=== PATIENT | female | born 1955 | race Caucasian/White ===

== ENCOUNTER 2020-04-04 13:50 | Outpatient (CLI) | payer OTHER, SELFPAY ==
--- NOTE | ~2020-04-04 | MM_ITS ---
EXAMINATION: MM screening [facility] w mazin HISTORY: Screening mammogram TECHNIQUE: Craniocaudal and mediolateral oblique 3-D tomosynthesis images were obtained and synthetic 2-D images were generated. CAD analysis was submitted and interpreted. COMPARISON: 03/30/2019, 03/05/2018, 11/28/2016 bilateral digital screening mammogram examinations BREAST PARENCHYMAL COMPOSITION: The breasts are extremely dense, which lowers the sensitivity of mamm ography. FINDINGS: There is no evidence of suspicious mass, calcification, or architectural distortion to sugg est malignancy in either breast. There has been no suspicious interval change. IMPRESSION: 1. No mammographic evidence of malignancy. 2. Recommend routine screening mammography in one year. BI-RADS Category 1: Negative Reviewed, dictated and finalized at location A.
== END 2020-04-04 13:51 | disposition home or self-care (01) ==
PROVIDERS: PCP Internal Medicine; Visit Provider Obstetrics & Gynecology
DX: Z12.31 Encounter for screening mammogram for malignant neoplasm of breast (principal)
CPT/HCPCS: 77063; 77067

== ENCOUNTER 2020-05-18 12:48 | Outpatient (CLI) | payer OTHER, SELFPAY ==
--- NOTE | 2020-05-18 15:00 | NEURO_ITS ---
Patient Number: [id number] Impression: # Complains of numbness of hand. # Evolving right Carpal Tunnel Syndrome. # No ulnar neuropathy. # Normal needle/EMG exam. Nerve Conduction Studies Anti Sensory Summary Table Stim Site NR Peak (ms) P-T Amp (?V) Site1 Site2 Delta-P (ms) Dist (cm) Eric (m/s) Left Median Anti Sensory (2-3nd Digit) Wrist 2.5 96.4 Wrist 2-3nd Digit 2.5 14.0 56 Wrist 2.7 79.1 Wrist 2-3nd Digit 2.5 14.0 56 Right Median Anti Sensory (2-3nd Digit) Wrist 2.7 73.4 Wrist 2-3nd Digit 2.7 14.0 52 Wrist 2.8 66.8 Wrist 2-3nd Digit 2.7 14.0 52 Left Radial Anti Sensory (Base 1st Digit) Wrist 2.2 49.3 Wrist Base 1st Digit 2.2 0.0 Right Radial Anti Sensory (Base 1st Digit) Wrist 2.3 12.4 Wrist Base 1st Digit 2.3 0.0 Left Ulnar Anti Sensory (5th Digit) Wrist 2.6 75.2 Wrist 5th Digit 2.6 14.0 54 Right Ulnar Anti Sensory (5th Digit) Wrist 2.5 71.7 Wrist 5th Digit 2.5 14.0 56 Motor Summary Table Stim Site NR Onset (ms) O-P Amp (mV) Site1 Site2 Delta-0 (ms) Dist (cm) Eric (m/s) Left Median Motor (Abd Poll Brev) Wrist 3.2 2.7 Elbow Wrist 5.1 28.0 55 Elbow 8.3 5.9 Right Median Motor (Abd Poll Brev) Wrist 3.4 2.6 Elbow Wrist 4.8 29.0 60 Elbow 8.2 3.5 Left Ulnar Motor (Abd Dig Minimi) Wrist 2.6 5.4 A Elbow Wrist 4.8 29.0 60 A Elbow 7.4 4.9 Right Ulnar Motor (Abd Dig Minimi) Wrist 2.3 5.9 A Elbow Wrist 4.4 28.0 64 A Elbow 6.7 4.7 F Wave Studies NR F-Lat (ms) L-R F-Lat (ms) Left Median (Mrkrs) (Abd Poll Brev) 29.18 0.93 Right Median (Mrkrs) (Abd Poll Brev) 28.25 0.93 Left Ulnar (Mrkrs) (Abd Dig Min) 26.91 0.50 Right Ulnar (Mrkrs) (Abd Dig Min) 27.41 0.50 EMG Side Muscle Nerve Root Ins Act Fibs Amp Dur Recrt Comment Right 1stDorInt Ulnar C8-T1 Nml Nml Nml Nml Nml Right Ext Indicis Radial (Post Int) C7-8 Nml Nml Nml Nml Nml Right Ext Digitorum Radial (Post Int) C7-8 Nml Nml Nml Nml Nml Right BrachioRad Radial C5-6 Nml Nml Nml Nml Nml Right PronatorTeres Median C6-7 Nml Nml Nml Nml Nml Right Abd Poll Brev Median C8-T1 Nml Nml Nml Nml Nml Left 1stDorInt Ulnar C8-T1 Nml Nml Nml Nml Nml Left Ext Indicis Radial (Post Int) C7-8 Nml Nml Nml Nml Nml Left Ext Digitorum Radial (Post Int) C7-8 Nml Nml Nml Nml Nml Left BrachioRad Radial C5-6 Nml Nml Nml Nml Nml Left PronatorTeres Median C6-7 Nml Nml Nml Nml Nml Left Abd Poll Brev Median C8-T1 Nml Nml Nml Nml Nml MTDD
== END 2020-05-18 12:49 | disposition home or self-care (01) ==
PROVIDERS: PCP Internal Medicine; Visit Provider Psychiatry & Neurology Neurology
DX: G56.01 Carpal tunnel syndrome, right upper limb (principal)
CPT/HCPCS: 95886; 95911

== ENCOUNTER 2020-06-01 16:22 | Outpatient (CLI) | payer OTHER, SELFPAY ==
[2020-06-01 16:37] LABS: Hematocrit 38.1 % (35.0-49.0); Hemoglobin 12.2 g/dL (12.0-15.0); Mean Corpuscular Hemoglobin 30.8 pg (27.0-31.0); Mean Corpuscular Volume 96.2 fL (78.0-102.0); Mean Platelet Volume 10.9 fl (9.2-11.8); Platelet Count Result 191 K/mm3 (150-420); Red Blood Count 3.96 M/mm3 (4.20-5.40); Red Cell Distribution Width 13.4 % (11.6-14.4); White Blood Count 5.7 K/mm3 (4.8-10.8)
[2020-06-01 17:25] LABS: Alanine Aminotransferase 33 U/L (14-59); Albumin Level 3.9 g/dL (3.4-5.0); Alkaline Phosphatase 81 U/L (46-116); Anion Gap 7 mmol/L (8-16); Aspartate Amino Transferase 26 U/L (15-37); Bilirubin,Total 0.2 mg/dL (0.00-1.00); Blood Urea Nitrogen 21 mg/dL (7-18); Calcium 8.8 mg/dL (8.5-10.1); Carbon Dioxide 30 mmol/L (21-32); Chloride 107 mmol/L (98-108); Cholesterol 182 mg/dL (0-200); Estimated Glomerular Filt Rate 47; Glucose 92 mg/dL (70-99); HDL Direct 97 mg/dL (40-60); LDL Cholesterol Calculated 74 mg/dL (<130); Osmolality Calculated 301 mOsm/kg (285-295); Potassium 3.6 mmol/L (3.5-5.1); Sodium 144 mmol/L (136-145); Total Protein 6.7 g/dL (6.4-8.2); Triglycerides 53 mg/dL (0-150)
[2020-06-06 12:04] LABS: Vitamin D 25 Hydroxy 79 ng/mL (30-100)
== END 2020-06-01 16:23 | disposition home or self-care (01) ==
LOC: CHSLAB 16:26
PROVIDERS: PCP Internal Medicine; Visit Provider Nurse Practitioner
DX: M81.0 Age-related osteoporosis without current pathological fracture (principal); Z13.220 Encounter for screening for lipoid disorders; I10 Essential (primary) hypertension
CPT/HCPCS: 36415; 80053; 80061; 82306; 85027

== ENCOUNTER 2020-07-07 09:15 | Outpatient (CLI) | payer OTHER, SELFPAY ==
--- NOTE | ~2020-07-07 | DEXA_ITS ---
Bone Density Report Name: Jaja Stroud Age: 64 Sex: Female Ethnicity: White Date of : 1955 Indication: postmenopausal; screening for osteoporosis; height loss; hysterectomy; Referring Provider: Gale Theodore Study: Bone densitometry was performed. Exam Date: July 07, 2020 Accession number: [id number] Bone Density: Region BMD T-score Z-score Classification AP Spine(L1-L4) 0.890 -1.4 0.2 Osteopenia Femoral Neck (Left) 0.687 -1.5 -0.1 Osteopenia Total Hip (Left) 0.784 -1.3 -0.2 Osteopenia Femoral Neck (Right) 0.667 -1.6 -0.2 Osteopenia Total Hip (Right) 0.785 -1.3 -0.2 Osteopenia Femoral Neck Mean 0.677 -1.6 -0.1 Osteopenia Total Hip Mean 0.785 -1.3 -0.2 Osteopenia World Health Organization criteria for BMD impression classify patients as: Normal (T-score at or above -1.0), Osteopenia (T-score between -1.0 and -2.5), or Osteoporosis (T-score at or below -2.5). 10-year Fracture Risk(1): Major Osteoporotic Fracture 7.3% Hip Fracture 0.8% Reported Risk Factors: [place] (), Neck BMD=0.667, BMI=17.5 (1) FRAX(R) Version 3.08. Fracture probability calculated for an untreated patient. Fracture probability may be lower if the patient has received treatment. Clinical Information Provided by Patient: Has used the following medications: Vitamin D, Calcium Has the following medical conditions: Hysterectomy Patient maximum height was 65 Menopause Age: 57 No regular weight bearing exercise Onset of menses at age 15 Number of children 2 Impression: The patient has low bone mass, based on the Right Femoral Neck T-score. Discussion: BONE DENSITY IS LOW AT ONE OR MORE SKELETAL SITES. This patient's lowest T-score is low at one or more skeletal sites. It meets the World Health Organization's (WHO) criteria for ?low bone mass? (T-score between -1.0 and -2.5). The patient's 10-year risk of fracture as calculated by FRAX is less than the threshold where pharmacological therapy is recommended by the National Osteoporosis Foundation (NOF). However, all treatment decisions require clinical judgment and consideration of individual patient factors, including patient preferences, comorbidities, previous drug use, risk factors not captured in the FRAX model (e.g., frailty, falls, vitamin D deficiency, increased bone turnover, interval significant decline in bone density) and possible under or overestimation of fracture risk by FRAX. The patient should follow a healthful lifestyle (good nutrition with adequate calcium and vitamin D, and appropriate weight-bearing exercise). Follow-Up: Consider repeating this study in 2 to 3 years to reassess this patient's status, or sooner if there is some new clinical indication. Reported by: Dr. Dakotah Meyers on 07/07/2020 9:47
== END 2020-07-07 09:16 | disposition home or self-care (01) ==
LOC: CHSIMG 09:16
PROVIDERS: PCP Internal Medicine; Visit Provider Nurse Practitioner
DX: M85.80 Other specified disorders of bone density and structure, unspecified site (principal)
CPT/HCPCS: 77080

== ENCOUNTER 2020-12-20 13:19 | Outpatient (CLI) | payer OTHER, SELFPAY ==
--- NOTE | 2020-12-20 13:53 | ECHO_ITS ---
Patient Info Name: Jaja Stroud Age: 65 years : 1955 Gender: Female Ht: 64 in Wt: 101 lbs BSA: 1.43 m2 HR: 88 bpm BP: 171 / 87 mmHg Technical Quality: Fair Exam Date: 12/20/2020 2:01 PM Exam Location: [facility] Patient Status: Outpatient Admit Date: 12/20/2020 Staff Ordering Physician: Jennifer Vargas Alarm Mechanic: Laura Plata RDCS Attending Provider: Jennifer Vargas Referring Physician: Sam MENDOZA; Exam Type: CA echo doppler color flow Study Info Indications - tachycardia Complete two-dimensional, color flow and Doppler transthoracic echocardiogram is performed. Summary 1. Complete two-dimensional, color flow and Doppler transthoracic echocardiogram is performed. 2. Left ventricular chamber dimension is normal. 3. Left ventricular systolic function is normal, estimated at 60-65%. 4. There is mildly increased left ventricular wall thickness. 5. The left ventricular diastolic function is grade I diastolic dysfunction. 6. E/e' 11 is mildly elevated. 7. There is trace mitral valve regurgitation. 8. There is mild tricuspid valve regurgitation. 9. No pulmonary hypertension, estimated pulmonary arterial systolic pressure is 23 mmHg. 10. Only in the subcostal images which is suboptimal there is a suggestion of a moderate to large loculated right sided pericardial effusion measuring up to 2.7 cm; however this could be artifact as it is not seen in other images. The other areas around the heart is small pericardial effusion. Consider CT of chest to assess pericardial effusion. Left Ventricle E/e' 11 is mildly elevated. Left ventricular chamber dimension is normal. Left ventricular systolic function is normal, estimated at 60-65%. There is mildly increased left ventricular wall thickness. The left ventricular diastolic function is grade I diastolic dysfunction. Right Ventricle Right ventricular chamber dimension is normal. Right ventricular systolic function is normal. Left Atria Left atrial chamber dimension is normal. Right Atria Right atrial chamber dimension is normal. Aortic Valve The aortic valve is trileaflet. There is no aortic valve stenosis. There is no aortic valve regurgitation. Pulmonic Valve There is no pulmonic regurgitation. Mitral Valve There is no mitral valve stenosis. There is trace mitral valve regurgitation. Tricuspid Valve There is mild tricuspid valve regurgitation. No pulmonary hypertension, estimated pulmonary arterial systolic pressure is 23 mmHg. Pericardium/Pleural Only in the subcostal images which is suboptimal there is a suggestion of a moderate to large loculated right sided pericardial effusion measuring up to 2.7 cm; however this could be artifact as it is not seen in other images. The other areas around the heart is small pericardial effusion. Consider CT of chest to assess pericardial effusion. Inferior Vena Cava Normal inferior vena cava with >50% collapse upon inspiration consistent with normal right atrial pressure, 5 mmHg. Aorta The aortic root size at the sinus of Valsalva is normal. Left Ventricular Outflow Tract Name Value Normal LVOT 2D LVOT Diameter 2.0 cm LVOT Doppler -----
== END 2020-12-20 13:20 | disposition home or self-care (01) ==
PROVIDERS: PCP Internal Medicine; Visit Provider Clinical Nurse Specialist
DX: I45.10 Unspecified right bundle-branch block (principal); R00.0 Tachycardia, unspecified; I36.1 Nonrheumatic tricuspid (valve) insufficiency
CPT/HCPCS: 93306

== ENCOUNTER 2021-01-17 10:22 | Outpatient (CLI) | payer OTHER, SELFPAY ==
--- NOTE | ~2021-01-17 | CT_ITS ---
EXAMINATION: CT diagnostic chest wo con DATE: 01/17/2021 10:44 INDICATION: Pericardial effusion TECHNIQUE: Computed tomography (CT) of the chest was performed without intravenous contrast. The dose -length product (DLP) was 136.18 mGy-cm. Automated exposure control and iterative reconstruction tech nique were employed. COMPARISON: None FINDINGS: The lungs are hyperinflated. A small pericardial effusion is noted. The heart size is rosa l. There is a 6 mm nodule of the right lower lobe on image 64. There is a 2 mm nodule of the left low er lobe on image 52. The lungs are free of focal airspace opacities. Pectus excavatum is noted. There is scarring of the lung apices. There are no pathologically enlarged thoracic lymph nodes. There is mild thoracic spondylosis. IMPRESSION: 1. Small pericardial effusion. 2. Lung nodules measuring up to 6 mm, likely old granulomatous disease. Recommend follow-up CT in 6-1 2 months. Reviewed, dictated and finalized at location B. IMPRESSION: 1. Small pericardial effusion. 2. Lung nodules measuring up to 6 mm, likely old granulomatous disease. Recomme nd follow-up CT in 6-12 months.
== END 2021-01-17 10:23 | disposition home or self-care (01) ==
LOC: ANHIMG 10:25
PROVIDERS: PCP Internal Medicine; Visit Provider Internal Medicine Cardiovascular Disease
DX: I31.3 Pericardial effusion (noninflammatory) (principal); R91.8 Other nonspecific abnormal finding of lung field
CPT/HCPCS: 71250

== ENCOUNTER 2021-04-05 12:59 | Outpatient (CLI) | payer OTHER, SELFPAY ==
--- NOTE | ~2021-04-05 | MM_ITS ---
EXAMINATION: MM screening [facility] BI w mazin HISTORY: Screening TECHNIQUE: Craniocaudal and mediolateral oblique 3-D tomosynthesis images were obtained and synthetic 2-D images were generated. CAD analysis was submitted and interpreted. COMPARISON: Comparison to multiple prior studies sequentially, with oldest reviewed study dated 10/11. BREAST PARENCHYMAL COMPOSITION: The breasts are extremely dense, which lowers the sensitivity of mamm ography. FINDINGS: There is no evidence of suspicious mass, calcification, or architectural distortion to sugg est malignancy in either breast. There has been no suspicious interval change. IMPRESSION: 1. No mammographic evidence of malignancy. 2. Recommend routine screening mammography in one year. BI-RADS Category 1: Negative Reviewed, dictated and finalized at location A.
== END 2021-04-05 13:00 | disposition home or self-care (01) ==
PROVIDERS: PCP Internal Medicine; Visit Provider Obstetrics & Gynecology
DX: Z12.31 Encounter for screening mammogram for malignant neoplasm of breast (principal)
CPT/HCPCS: 77063; 77067

== ENCOUNTER 2021-07-08 07:04 | Emergency (ER) | payer OTHER, SELFPAY ==
--- NOTE | 2021-07-08 08:00 | PCDIET ---
Pt seen in waiting room by THERESA Oneal. C/O of left ear pain and URI symptoms taken. Pt denies SOB. No acute distress noted. Pt A&O x4. Pt reports positive home covid test yesterday. Pt notified of wait time and asked to go out to car and wait to be seen. Pt verbalized understanding and walked out to car without distress. Pt is accompanied by spouse.
[2021-07-08 08:53] VITALS: BP 136/75; PULSE 108; RESP 16; TEMP 37.4; O2SAT 99
[2021-07-08 09:45] LABS: Influenza A QL RT-PCR Negative (Negative); Influenza B QL RT-PCR Negative (Negative); SARS-CoV-2 RNA PCR Positive (Negative)
[2021-07-08] MEDS: MAG HYDROX/ALUMINUM HYD/SIMETH 30 ML, PHENobarb/HYOSCY/ATROPINE/SCOP 32.4 MG, LIDOCAINE... PO (09:53)
[2021-07-08] MEDS: IBUPROFEN 400 MG TABLET 800 MG PO (09:55)
--- NOTE | 2021-07-08 10:01 | PC.NURSE ---
Pt refuses IV and fluids. Dr. Moore notified.
--- NOTE | 2021-07-08 10:12 | ED.URI ---
HPI - URI/Sore Throat General Chief Complaint: Upper Respiratory Infection Stated Complaint: sore throat/headache/positive covid 06/07 Time Seen by Provider: 07/08/21 07:08 Source: patient and RN notes reviewed Mode of arrival: ambulatory Limitations: no limitations History of Present Illness MD elicited complaint: fever, cough, sore throat and nasal congestion Onset (ago): day(s) (4) Consistency: progressively worsening Severity: mild Pain scale (0-10): 4 Able to tolerate fluids by mouth: Yes Exacerbating factors: nothing Relieving factors: nothing Associated symptoms: denies other symptoms and sore throat Treatments prior to arrival: none Related Data Home Medications Medication Instructions Recorded Confirmed multivitamin,[id number] 1 tablet PO DAILY 04/17/20 06/06/21 calcium carbonate 500 mg calcium 500 mg PO DAILY 06/22/20 06/06/21 (1,250 mg) tablet cholecalciferol (vitamin D3) 125 125 mcg PO DAILY 06/22/20 06/06/21 mcg (5,000 unit) capsule omega-3 fatty acids 1,000 mg 1,000 mg PO DAILY 06/22/20 06/06/21 capsule potassium 99 mg tablet 99 mg PO DAILY tablet 06/23/20 06/06/21 metoprolol tartrate 25 mg tablet 25 mg PO DAILY 05/01/21 06/06/21 Allergies Allergy/AdvReac Type Severity Reaction Status Date / Time aspirin Allergy Unknown Unknown Verified 06/06/21 12:09 Review of Systems Review of Systems: All systems reviewed & are unremarkable except as noted in HPI and below ENT: Reports nasal congestion and Reports sore throat PMFSH Past Medical History Medical History Chicken pox Closed fracture of nasal bone with routine healing Dermatophytosis of scalp and hendricks Essential (primary) hypertension Hypertension Malnutrition Measles Migraine headache Mumps Onychomycosis due to dermatophyte Osteopenia Surgical History Surgical History H/O foot surgery H/O: hysterectomy Family History Family History Mother Hypertension Patient's mother is Father Family history of elevated blood lipids Family history of diabetes mellitus in first degree relative Diabetes mellitus Hypertension Other Family history of coronary artery disease Family history of malignant neoplasm of breast Social History Social History Social History: caffeine-tea/soda occasionally Smoking status: Never smoker Second hand tobacco smoke exposure: No Alcohol intake: never Exam Const: General: no acute distress Orientation/consciousness: patient oriented x3 Limitations: no limitations HENMT: Head: normal to inspection Ears: external ears normal and TM's normal bilaterally General nose exam: Normal external nose present and Normal nares present Mouth: Yes lip normal and Yes moist mucous membranes Teeth and gingiva: dentition normal Other: mild hyperemic pharynx Eyes: Conjunctivae: conjunctivae normal Pupils: Equal, round and reactive pupils present EOM: EOMs intact bilaterally Neck: Neck: normal visual inspection and no lymphadenopathy Chest: Chest palpation & inspection: normal inspection of the chest Resp: Effort & Inspection: normal respiratory effort Auscultation: clear to auscultation bilaterally Cardio: Rate: regular rate Rhythm: regular rhythm GI: GI Palp: Yes Soft to palpation and No Tenderness to palpation present (GI) Percussion: Yes normal to percussion Auscultation: normal bowel sounds : General: Yes bladder normal to palpation and Yes no CVA tenderness Back/Spine/Pelvis: Back: no CVA tenderness Skin: General skin exam: normal color Rashes: no rashes Neuro: General: patient oriented x3, moves all extremities, no meningeal signs, no focal motor deficits and CN's II-XI intact bilaterally Extrem: General: normal to inspection
[2021-07-08 10:20] VITALS: BP 133/80; PULSE 98; RESP 16; O2SAT 97
--- NOTE | 2021-07-08 10:25 | PC.NURSE ---
Dr. Moore aware Mucinex has not been verified. Unable to chart against. RX given.
== END 2021-07-08 10:29 | disposition home or self-care (01) ==
PROVIDERS: Emergency Provider Emergency Medicine; PCP Internal Medicine
DX: U07.1 COVID-19 (principal); J06.9 Acute upper respiratory infection, unspecified; J02.9 Acute pharyngitis, unspecified
CPT/HCPCS: 87502; 99283; A9270; C9803; U0003; U0005

== ENCOUNTER → 2022-02-15 15:05 | Outpatient (CLI) | payer OTHER, SELFPAY ==
--- NOTE | ~2022-02-15 | US_ITS ---
US retroperitoneal comp 02/15/2022 15:47 Procedure: Realtime transabdominal ultrasound of the kidneys and bladder. Indication: Abnormal renal function tests. Chronic kidney disease stage III. Comparison: Abnormal renal function tests. Findings: Renal echotexture is normal bilaterally without contour deforming mass or renal calculus. T here is mild bilateral hydronephrosis. The right kidney measures 10.6 cm and left kidney measures 9.5 cm. Bladder within normal limits. Impression: 1: Mild bilateral hydronephrosis. Reviewed, dictated and finalized at location A. Impression: 1: Mild bilateral hydronephrosis.
== END ==
PROVIDERS: PCP Internal Medicine; Visit Provider Internal Medicine Nephrology
DX: N18.31 Chronic kidney disease, stage 3a (principal); I12.9 Hypertensive chronic kidney disease with stage 1 through stage 4 chronic kidney disease, or unspecified chronic kidney disease; N13.30 Unspecified hydronephrosis
CPT/HCPCS: 76770

== ENCOUNTER 2022-04-08 12:53 | Outpatient (CLI) | payer OTHER, SELFPAY ==
--- NOTE | ~2022-04-08 | MM_ITS ---
EXAMINATION: MM screening [facility] BI w mazin HISTORY: Screening mammogram TECHNIQUE: Craniocaudal and mediolateral oblique 3-D tomosynthesis images were obtained and synthetic 2-D images were generated. CAD analysis was submitted and interpreted. COMPARISON: 04/05/2021, 04/04/2020, 10/12/2015 BREAST PARENCHYMAL COMPOSITION: The breasts are extremely dense, which lowers the sensitivity of mamm ography. FINDINGS: There is no suspicious mass, calcification, or architectural distortion to suggest malignan cy in either breast. There has been no suspicious interval change. IMPRESSION: 1. No mammographic evidence of malignancy. 2. Recommend routine screening mammography in one year. BI-RADS Category 1: Negative Reviewed, dictated and finalized at location A.
== END 2022-04-08 12:54 | disposition home or self-care (01) ==
LOC: CHSIMG 12:54
PROVIDERS: PCP Internal Medicine; Visit Provider Obstetrics & Gynecology
DX: Z12.31 Encounter for screening mammogram for malignant neoplasm of breast (principal)
CPT/HCPCS: 77063; 77067

== ENCOUNTER → 2022-05-18 11:20 | Outpatient (CLI) | payer OTHER, SELFPAY ==
--- NOTE | ~2022-05-18 | MR_ITS ---
EXAMINATION: MR cervical spine wo con DATE: 05/18/2022 12:20 INDICATION: Chronic posterior right-sided migraine headache. TECHNIQUE: Magnetic resonance imaging (MRI) of the cervical spine was performed without intravenous c ontrast. Sequences included sagittal T2-weighted FSE, sagittal T2-weighted FS FSE, sagittal T1-weight ed FSE, axial MERGE, and axial T2-weighted FSE. COMPARISON: Cervical spine MRI 04/12/2005 FINDINGS: There is 8 degrees levocurvature of cervicothoracic spine. Vertebral body heights are rosa l. There is mildly decreased disc height at C4-C5 and C5-C6. The spinal cord signal intensity is norm al. The following disc levels are specifically discussed: C2-C3: The disc does not extend beyond the endplate margin. There is no uncovertebral joint osteoarth ritis. There is severe left facet joint osteoarthritis. There is mild left neural foraminal stenosis. There is no central canal stenosis. C3-C4: The disc does not extend beyond the endplate margin. There is no uncovertebral joint osteoarth ritis. There is no facet joint osteoarthritis. There is no neural foraminal stenosis. There is no katy tral canal stenosis. C4-C5: The disc is bulging. There is moderate right and mild left uncovertebral joint osteoarthritis. There is mild bilateral facet joint osteoarthritis. There is mild bilateral neural foraminal stenosi s. There is mild central canal stenosis. C5-C6: The disc is bulging. There is mild right and severe left uncovertebral joint osteoarthritis. T here is mild bilateral facet joint osteoarthritis. There is mild bilateral neural foraminal stenosis. There is mild central canal stenosis. C6-C7: The disc does not extend beyond the endplate margin. There is mild left uncovertebral joint os teoarthritis. There is mild bilateral facet joint osteoarthritis. There is no neural foraminal stenos is. There is no central canal stenosis. C7-T1: The disc does not extend beyond the endplate margin. There is no uncovertebral joint osteoarth ritis. There is mild right and severe left facet joint osteoarthritis. There is mild left neural fora luis manuel stenosis. There is no central canal stenosis. IMPRESSION: 1. Mild cervical spondylosis, worsened from 04/12/2005. Reviewed, dictated and finalized at location A.
== END ==
PROVIDERS: PCP Internal Medicine; Visit Provider Psychiatry & Neurology Neurology
DX: G43.909 Migraine, unspecified, not intractable, without status migrainosus (principal); M47.892 Other spondylosis, cervical region
CPT/HCPCS: 72141

== ENCOUNTER → 2022-06-19 09:17 | Outpatient (CLI) | payer OTHER, SELFPAY ==
--- NOTE | ~2022-06-19 | CT_ITS ---
EXAMINATION:CT diagnostic chest w con DATE: 06/19/2022 09:52 INDICATION: Lung nodules. TECHNIQUE: Computed tomography (CT) of the chest was performed with 75 mL Omnipaque 350 intravenous c ontrast. Automated exposure control and iterative reconstruction technique were employed. The dose-le ngth product (DLP) was 134.48 mGy-cm. COMPARISON: CT chest 01/17/2021 FINDINGS: Again seen is scarring at the lung apices. Calcified right lung nodules and calcified right hilar lymph nodes are consistent with old granulomatous disease. There is a new 7 mm nodule in lingu la. There is a stable 3 mm nodule in left lower lobe. There is mild bronchiectasis in right middle lo be and lingula. No pleural effusion. The heart size is normal. There is a chronic small pericardial e ffusion. Pectus excavatum is noted. There are cysts in the liver measuring up to 5 mm. Calcifications in the spleen are consistent with old granulomatous disease. IMPRESSION: 1. New 7 mm pulmonary nodule, probably benign. Noncontrast low-dose chest CT is recommended in 6 tangela hs. 2. Mild bronchiectasis in right middle lobe and lingula. 3. Chronic small pericardial effusion. Reviewed, dictated and finalized at location A. LE LOOM TENDER IMPRESSION: 1. New 7 mm pulmonary nodule, probably benign. Noncontrast low-dose chest CT is recommended in 6 months. 2. Mild bronchiectasis in right middle lobe and lingula. 3. Chronic small pericardial effusion.
[2022-06-19 09:39] LABS: Estimated Glomerular Filt Rate 45
== END ==
PROVIDERS: PCP Internal Medicine; Visit Provider Clinical Nurse Specialist
DX: R91.8 Other nonspecific abnormal finding of lung field (principal); I31.39 Other pericardial effusion (noninflammatory); R91.1 Solitary pulmonary nodule
CPT/HCPCS: 71260; Q9967

== ENCOUNTER 2022-07-09 12:48 | Outpatient (CLI) | payer OTHER, SELFPAY ==
--- NOTE | ~2022-07-09 | DEXA_ITS ---
Bone Density Report Name: RENEE DE SANTIAGO Age: 66 Sex: Female Ethnicity: White Date of : 1955 Indication: postmenopausal; screening for osteoporosis; prior fracture; hysterectomy; Referring Provider: Mark Echevarria Study: Bone densitometry was performed. Exam Date: July 09, 2022 Accession number: [id number] Bone Density: Region BMD T-score Z-score Classification AP Spine(L1, L3, L4) 0.861 -1.7 0.0 Osteopenia Femoral Neck (Left) 0.659 -1.7 -0.2 Osteopenia Total Hip (Left) 0.739 -1.7 -0.5 Osteopenia Femoral Neck (Right) 0.625 -2.0 -0.5 Osteopenia Total Hip (Right) 0.741 -1.6 -0.4 Osteopenia Femoral Neck Mean 0.642 -1.9 -0.4 Osteopenia Total Hip Mean 0.740 -1.7 -0.4 Osteopenia World Health Organization criteria for BMD impression classify patients as: Normal (T-score at or above -1.0), Osteopenia (T-score between -1.0 and -2.5), or Osteoporosis (T-score at or below -2.5). 10-year Fracture Risk(1): Major Osteoporotic Fracture 14% Hip Fracture 2.2% Reported Risk Factors: [place] (), Neck BMD=0.625, BMI=17.0, previous fracture (1) FRAX(R) Version 3.08. Fracture probability calculated for an untreated patient. Fracture probability may be lower if the patient has received treatment. Clinical Information Provided by Patient: Has had a low trauma fracture Has used the following medications: Vitamin D, Calcium Has the following medical conditions: Hysterectomy Patient maximum height was 65 Menopause Age: 57 No regular weight bearing exercise Onset of menses at age 15 Number of children 2 Impression: The patient has low bone mass, based on the Right Femoral Neck T-score. The patient has risk factors, including: previous fracture. Discussion: BONE DENSITY IS LOW AT ONE OR MORE SKELETAL SITES. This patient's lowest T-score is low at one or more skeletal sites. It meets the World Health Organization's (WHO) criteria for ?low bone mass? (T-score between -1.0 and -2.5). The patient's 10-year risk of fracture as calculated by FRAX is less than the threshold where pharmacological therapy is recommended by the National Osteoporosis Foundation (NOF). However, all treatment decisions require clinical judgment and consideration of individual patient factors, including patient preferences, comorbidities, previous drug use, risk factors not captured in the FRAX model (e.g., frailty, falls, vitamin D deficiency, increased bone turnover, interval significant decline in bone density) and possible under or overestimation of fracture risk by FRAX. The patient should follow a healthful lifestyle (good nutrition with adequate calcium and vitamin D, and appropriate weight-bearing exercise). Follow-Up: Consider repeating this study in 2 to 3 years to reassess this patient's s
== END 2022-07-09 12:49 | disposition home or self-care (01) ==
LOC: CHSIMG 12:50
PROVIDERS: PCP Internal Medicine; Visit Provider Clinical Nurse Specialist
DX: Z78.0 Asymptomatic menopausal state (principal); M85.89 Other specified disorders of bone density and structure, multiple sites
CPT/HCPCS: 77080

== ENCOUNTER 2022-07-21 11:06 | Emergency (ER) | payer MEDICARE, SELFPAY ==
[2022-07-21] VITALS (7 sets, daily range): BP systolic 137–153; BP diastolic 78–86; PULSE 68–85; RESP 18; TEMP 37.1; O2SAT 98–100
--- NOTE | 2022-07-21 11:09 | ECG_ITS ---
Measurements Intervals [place] Rate: 75 P: 62 OR: 172 QRS: 83 QRSD: 114 T: 68 QT: 399 QTc: 447 Interpretive Statements SINUS RHYTHM VENTRICULAR PREMATURE COMPLEX POSSIBLE LEFT ATRIAL ENLARGEMENT INTRAVENTRICULAR CONDUCTION DELAY BORDERLINE R WAVE PROGRESSION, ANTERIOR LEADS BASELINE ARTIFACT- I, II, AVR, AVL, AVF BORDERLINE ECG NO PREVIOUS ECG AVAILABLE FOR COMPARISON Electronically Signed On 07-21-2022 15:23:25 CASTING COORDINATOR by Kilo Hernadez D.O.
[2022-07-21 11:20] LABS: Basophils Percent Auto 0.3 % (0.2-1.2); Eosinophils Absolute Auto 0.1 K/mm3 (0-0.3); Eosinophils Percent Auto 1.4 % (0-4.4); Hematocrit 41.5 % (37.0-47.0); Hemoglobin 13.2 g/dL (12.0-15.0); Immature Granulocyte Absolute 0.01 K/mm3 (0.00-0.031); Immature Granulocyte Percent A 0.2 % (0-0.5); Lymphocytes Absolute Auto 1.62 K/mm3 (0.9-3.2); Lymphocytes Percent Auto 28.3 % (18.3-44.2); Mean Corpuscular HGB Conc 31.8 g/dl (32-36); Mean Corpuscular Hemoglobin 30.9 pg (26-34); Mean Corpuscular Volume 97.2 fl (80-100); Mean Platelet Volume 10.4 fl (7.4-10.4); Monocytes Absolute Auto 0.6 K/mm3 (0.1-0.6); Monocytes Percent Auto 10.5 % (2.6-8.5); Neutrophils Absolute Auto 3.4 K/mm3 (1.3-6.7); Neutrophils Percent Auto 59.3 % (45.5-73.1); Platelet Count Result 184 k/mm3 (150-375); Red Blood Count 4.27 M/mm3 (4.2-5.4); Red Cell Distribution Width 13.6 % (11.5-14.5); White Blood Count 5.7 K/mm3 (4.5-10.0)
[2022-07-21 11:40] LABS: Alanine Aminotransferase 26 U/L (6-35); Albumin Level 4.2 g/dL (3.5-5.1); Alkaline Phosphatase 84 U/L (38-126); Anion Gap 4 mmol/L (8-16); Aspartate Amino Transferase 31 U/L (14-36); Bilirubin,Total 0.4 mg/dL (0.2-1.3); Blood Urea Nitrogen 23 mg/dL (7-17); Calcium 8.8 mg/dL (8.4-10.2); Carbon Dioxide 32 mmol/L (22-30); Chloride 99 mmol/L (98-107); Estimated CRCL calculation 31 ml/min; Estimated Glomerular Filt Rate 45; Glucose 106 mg/dL (65-110); Potassium 3.8 mmol/L (3.4-5.0); Sodium 135 mmol/L (137-145)
[2022-07-21] MEDS: SODIUM CHLORIDE 0.9% IV 1,000 ML 999 ML IV CONT (12:57)
--- NOTE | 2022-07-21 13:09 | ED.SYNCOPE ---
HPI - Syncope General Chief Complaint: Syncope Stated Complaint: syncopal Time Seen by Provider: 07/21/22 12:02 History of Present Illness HPI narrative: Patient is a 66-year-old female who presents ER status post syncope. Reports she woke up this morning feeling very fatigued and weak. [facility] While she was staying there she did not very warm and lightheaded. She did not feel any racing of her heart. She is having no chest pain. She then lost consciousness. She was out for a minute while people moved her to the hallway. Patient reports she is recently started on amlodipine 5 mg 3 days ago. Denies urinary symptoms. Patient also reports that she had a migraine earlier today that is since resolved. This is typical for her. Related Data Home Medications Medication Instructions Recorded Confirmed multivitamin,[id number] 1 tablet PO DAILY 04/17/20 06/05/22 (Complete Multivitamin tablet) calcium carbonate 500 mg calcium 500 mg PO DAILY 06/22/20 06/05/22 (1,250 mg) tablet (Calcium 500) cholecalciferol (vitamin D3) 125 125 mcg PO DAILY 06/22/20 06/05/22 mcg (5,000 unit) capsule omega-3 fatty acids 1,000 mg 1,000 mg PO DAILY 06/22/20 06/05/22 capsule (Fish Oil Concentrate) metoprolol tartrate 25 mg tablet 25 mg PO DAILY 05/01/21 06/05/22 Allergies Allergy/AdvReac Type Severity Reaction Status Date / Time aspirin Allergy Unknown Unknown Verified 07/21/22 11:16 Review of Systems Constitutional: Constitutional: Reports no additional constitutional complaints Cardiovascular: Cardiovascular: Reports no additional cardiovascular complaints Respiratory: Respiratory: Reports no additional respiratory complaints Gastrointestinal: Gastrointestinal: Reports no additional gastrointestinal complaints Neurologic: Reports system reviewed and no additional complaints, except as documented PMFSH Past Medical History Medical History Chicken pox Closed fracture of nasal bone with routine healing Essential (primary) hypertension Hypertension Malnutrition Measles Migraine headache Mumps Onychomycosis due to dermatophyte Osteopenia Surgical History Surgical History H/O foot surgery H/O: hysterectomy Family History Family History Mother Hypertension Patient's mother is Father Family history of elevated blood lipids Family history of diabetes mellitus in first degree relative Diabetes mellitus Hypertension Other Family history of coronary artery disease Family history of malignant neoplasm of breast Social History Social History Social History: caffeine-tea/soda occasionally Smoking status: Never smoker Second hand tobacco smoke exposure: No Alcohol intake: never Exam Narrative: GENERAL: Well-appearing, well-nourished, and in no acute distress. HEAD: Normocephalic, atraumatic. CHEST: Clear to auscultation. No respiratory distress. HEART: Regular rate and rhythm. Normal peripheral pulses. ABDOMEN: Soft, nontender, nondistended. EXTREMITIES: Normal range of motion. No edema. SKIN: Warm, dry, no rash. NEURO: Alert and oriented x3. PSYCH: Normal mood and affect. Course Course Emergency Course: I have independently reviewed patient's labs and EKG. No concerning ischemic findings on EKG me. Patient does appear little dehydrated on her blood work with elevated BUN and creatinine. Patient received 1 L normal saline for hydration. Orthostatic vital signs were negative. I do not think patient needs to discontinue her new blood pressure medication. Admission considered but patient felt to be appropriate for discharge. Vital Signs Vital signs: Vital Signs Temperature 98.7 F 07/21/22 11:05 Pulse Rate 68 07/21/22 11:05 Res
== END 2022-07-21 14:37 | disposition home or self-care (01) ==
PROVIDERS: Emergency Medicine; Emergency Provider Emergency Medicine; PCP Internal Medicine
DX: R55 Syncope and collapse (principal); I10 Essential (primary) hypertension
CPT/HCPCS: 36415; 80053; 85025; 93005; 96360; 99284; J7030

== ENCOUNTER 2022-12-23 12:22 | Outpatient (CLI) | payer MEDICARE, SELFPAY ==
--- NOTE | ~2022-12-23 | CT_ITS ---
CT Scan of the Chest without Contrast: Clinical Indication: Lung nodule Technique: Contiguous sections were acquired throughout the chest without intravenous contrast. Dose reduction technique was used on this scan by utilizing automated exposure control and iterative recon struction technique. The dose-length product (DLP) was 63.13 mGy-cm. COMPARISON: 06/19/2022 and 01/07/2021 Findings: There is no evidence of any significant mediastinal, hilar or axillary lymphadenopathy. Small pericar dial effusion noted. No aortic aneurysm. No pleural effusions. There is mild biapical scarring. Calcified granulomas noted in the right lower lobe. There is a vague semisolid nodule in the right lower lobe (axial image 69), unchanged. Prior lingular nodule now appe ars to represent post inflammatory scarring. Images through the upper abdomen reveal no abnormalities. Impression: Pulmonary nodules, as noted above, most likely benign. Small pericardial effusion. Reviewed, dictated and finalized at [facility]. Impression: Pulmonary nodules, as noted above, most likely benign. Small pericardial effusion.
== END 2022-12-23 12:23 | disposition home or self-care (01) ==
LOC: CHSIMG 12:24
PROVIDERS: PCP Internal Medicine; Visit Provider Internal Medicine
DX: R91.8 Other nonspecific abnormal finding of lung field (principal); I31.39 Other pericardial effusion (noninflammatory)
CPT/HCPCS: 71250

== ENCOUNTER 2023-04-16 13:21 | Outpatient (CLI) | payer MEDICARE, SELFPAY ==
--- NOTE | ~2023-04-16 | MM_ITS ---
EXAMINATION: MM screening [facility] BI w mazin HISTORY: Screening mammogram TECHNIQUE: Craniocaudal and mediolateral oblique 3-D tomosynthesis images were obtained and synthetic 2-D images were generated. CAD analysis was submitted and interpreted. COMPARISON: 04/08/2022, 04/05/2021, 04/04/2020 bilateral screening mammogram examinations BREAST PARENCHYMAL COMPOSITION: The breasts are heterogeneously dense, which may obscure small masses . FINDINGS: There is no evidence of suspicious mass, calcification, or architectural distortion to sugg est malignancy in either breast. There has been no suspicious interval change. IMPRESSION: 1. No mammographic evidence of malignancy. 2. Recommend routine screening mammography in one year. BI-RADS Category 1: Negative Reviewed, dictated and finalized at [facility].
== END 2023-04-16 13:22 | disposition home or self-care (01) ==
LOC: CHSIMG 13:23
PROVIDERS: PCP Internal Medicine; Visit Provider Obstetrics & Gynecology
DX: Z12.31 Encounter for screening mammogram for malignant neoplasm of breast (principal)
CPT/HCPCS: 77063; 77067

== ENCOUNTER 2023-10-18 13:15 | Emergency (ER) | payer MEDICARE, SELFPAY ==
--- NOTE | ~2023-10-18 | XR_ITS ---
XR foot LT min 3V DATE: 10/18/2023 13:41 INDICATION: Pain and swelling TECHNIQUE: 4 views COMPARISON: None FINDINGS: No fracture or dislocation, periosteal reaction or bone destruction. IMPRESSION: Negative Reviewed, dictated and finalized at [facility]. IMPRESSION: Negative
--- NOTE | ~2023-10-18 | XR_ITS ---
XR ankle LT min 3V DATE: 10/18/2023 13:41 INDICATION: Pain and swelling TECHNIQUE: 4 views COMPARISON: None FINDINGS: No fracture or dislocation of the ankle or disruption of the ankle mortise. No periosteal r eaction or bone destruction. IMPRESSION: Negative Reviewed, dictated and finalized at [facility]. IMPRESSION: Negative
[2023-10-18 13:18] VITALS: BP 139/75; PULSE 96; RESP 19; TEMP 36.7; O2SAT 97
--- NOTE | 2023-10-18 13:52 | ED.EXTPRO ---
HPI - Extremity Problem General Chief complaint: Extremity Problem,Nontraumatic Stated complaint: L foot swollen/pain Time Seen by Provider: 10/18/23 13:19 Source: patient Mode of arrival: ambulatory Limitations: no limitations History of Present Illness HPI Narrative: this is a 68-year-old female with history of hypertension presents with some left anterior foot pain especially when she bears weight has been going on for the last week with no known injuries there is some mild swelling with no bruising has good range of motion with no numbness or tingling no calf pain no calf swelling no calf tenderness no erythema. Has good range of motion in her foot toes on the left with a strong risk pedal pulse in the left. No shortness of breath no chest pain no nausea vomiting abdominal pain no dysuria or flank pain. MD Complaint: extremity pain Pain Consistency: other Location: left Severity scale (1-10): 5 Radiation: none Relieving factors: nothing Exacerbating factors: weight bearing, walking and palpation Associated symptoms: denies other symptoms Related Data Home Medications Medication Instructions Recorded Confirmed multivitamin,in-[id number]-[id number] 1 tablet PO DAILY 04/17/20 10/18/23 (Complete Multivitamin tablet) cholecalciferol (vitamin D3) 125 125 mcg PO DAILY 06/22/20 10/18/23 mcg (5,000 unit) capsule omega-3 fatty acids 1,000 mg 1,000 mg PO DAILY 06/22/20 10/18/23 capsule (Fish Oil Concentrate) amlodipine 5 mg tablet 5 mg PO DAILY 09/04/22 10/18/23 losartan 100 mg tablet 100 mg PO DAILY 09/04/22 10/18/23 metoprolol tartrate 25 mg tablet 25 mg PO BID 09/04/22 10/18/23 calcium carbonate 500 mg calcium 600 mg PO BID 03/05/23 10/18/23 (1,250 mg) tablet (Calcium 500) Allergies Allergy/AdvReac Type Severity Reaction Status Date / Time aspirin AdvReac Unknown Unknown Verified 10/18/23 13:18 Review of Systems Review of Systems: All systems reviewed & are unremarkable except as noted in HPI and below PMFSH Past Medical History Medical History Chicken pox Closed fracture of nasal bone with routine healing Essential (primary) hypertension Hypertension Malnutrition Measles Migraine headache Mumps Onychomycosis due to dermatophyte Osteopenia Upper respiratory infection Surgical History Surgical History H/O foot surgery H/O: hysterectomy Family History Family History Mother Hypertension Patient's mother is Father Family history of elevated blood lipids Family history of diabetes mellitus in first degree relative Diabetes mellitus Hypertension Other Family history of coronary artery disease Family history of malignant neoplasm of breast Social History Social History Social History: caffeine-tea/soda occasionally Smoking status: Never smoker Second hand tobacco smoke exposure: No Alcohol intake: never Substance use: never Substance use type: does not use and unknown Do You Feel Safe in your Home?: Yes Lack of Transportation: No Lack of Food: Never True Current Housing: I Have Housing Concerned About Future Housing: No Difficulty Paying Gas/Electric Bills: No Difficulty Paying for Meds: No Currently Unemployed: No Education: High School Diploma/GED Difficulty w/ Childcare or Family Care: No Living arrangements: with family Gender identity (if verbalized by the patient): Female Sexual Orientation (if Verbalized by the Patient): Straight or Heterosexual Exam Const: General: healthy appearing, no acute distress and alert Nutritional Appearance: well nourished Orientation/consciousness: patient oriented x3 Limitations: no limitations Chest: Chest palpation & inspection: normal inspection of the chest Resp: Eff
[2023-10-18] MEDS: ACETAMINOPHEN 500 MG TABLET 1000 MG PO (13:57)
[2023-10-18 14:45] VITALS: BP 118/73; PULSE 89; RESP 17; TEMP 36.7; O2SAT 100
== END 2023-10-18 14:45 | disposition home or self-care (01) ==
PROVIDERS: Emergency Provider Emergency Medicine; PCP Internal Medicine
DX: S93.692A Other sprain of left foot, initial encounter (principal); I10 Essential (primary) hypertension
CPT/HCPCS: 73610; 73630; 99283